=== PATIENT | male | born 1960 | race Caucasian/White ===

== ENCOUNTER → 2019-06-24 15:08 | Outpatient (CLI) | payer OTHER, SELFPAY ==
[2019-06-24 15:40] LABS: Add Manual Diff / Slide Review NO; Basophils Absolute Auto 100 /uL (0-100); Eosinophils Absolute Auto 200 /uL (0-450); Eosinophils Percent Auto 2.9 % (2-4); Hematocrit 45.5 % (41-53); Hemoglobin 15.4 g/dL (13.5-17.5); Lymphocytes Absolute Auto 1300 /uL (1100-4500); Lymphocytes Percent Auto 18.5 % (25-40); Mean Corpuscular HGB Conc 33.9 % (30-36); Mean Corpuscular Hemoglobin 32.8 PG (26-34); Mean Corpuscular Volume 96.7 fL (80-100); Monocytes Absolute Auto 700 /uL (0-900); Monocytes Percent Auto 9.6 % (3-14); Neutrophils Absolute Auto 4900 /uL (1500-7000); Platelet Count 146 X10^3/uL (150-400); Red Cell Distribution Width 15.9 % (11.6-14.8); White Blood Cell Count 7.2 X10^3/uL (4.5-11.0)
[2019-06-24 16:42] LABS: Alanine Aminotransferase 34 IU/L (21-72); Albumin 4.9 g/dL (3.5-5.0); Alkaline Phosphatase 66 U/L (38-126); Aspartate Aminotransferase 29 IU/L (17-59); BUN Creatinine Ratio 17.8 (6-22); Bilirubin Total 1.1 mg/dL (0.2-1.3); Blood Urea Nitrogen 16 mg/dL (9-20); Calcium 10.4 mg/dL (8.4-10.2); Carbon Dioxide 26 mmol/L (22-32); Chloride 99 mmol/L (98-107); Cholesterol 155 mg/dL (140-199); Estimated Glomerular Filt Rate > 60.0 mL/min (>60); Globulin 2.5 g/dL (1.7-4.1); Glucose 89 mg/dL (80-110); HDL Cholesterol 48 mg/dL (40-60); HEMOLYSIS < 15 (0-50); LDL Cholesterol Calculated 83 mg/dL (<100); Potassium 4.2 mmol/L (3.4-5.1); Sodium 138 mmol/L (137-145); Total Protein 7.4 g/dL (6.3-8.2); Triglycerides 122 mg/dL (35-150)
[2019-06-24 17:05] LABS: Thyroid Stimulating Hormone 2.12 uIU/mL (0.47-4.68)
[2019-06-24 17:41] LABS: Folate 13.1 ng/mL (2.76-20.0); Vitamin B12 423 pg/mL (239-931)
[2019-06-30 16:13] LABS: PSA Total 1.79 ng/mL (< 4.01)
== END ==
PROVIDERS: Visit Provider Family Medicine
DX: I25.119 Atherosclerotic heart disease of native coronary artery with unspecified angina pectoris (principal); Z12.5 Encounter for screening for malignant neoplasm of prostate
CPT/HCPCS: 36415; 80053; 80061; 82607; 82746; 84153; 84154; 84443; 85025

== ENCOUNTER → 2020-05-22 09:47 | Outpatient (CLI) | payer OTHER, SELFPAY ==
[2020-05-22 10:28] LABS: Hematocrit 44.3 % (41-53); Hemoglobin 14.9 g/dL (13.5-17.5); Mean Corpuscular HGB Conc 33.6 % (30-36); Mean Corpuscular Hemoglobin 32.9 PG (26-34); Mean Corpuscular Volume 97.9 fL (80-100); Platelet Count 135 X10^3/uL (150-400); Red Blood Cell Count 4.52 X10^6/uL (4.5-5.9); Red Cell Distribution Width 16.7 % (11.6-14.8); White Blood Cell Count 6.3 X10^3/uL (4.5-11.0)
[2020-05-22 10:51] LABS: HEMOLYSIS < 15 (0-50)
[2020-05-22 10:59] LABS: Alanine Aminotransferase 43 IU/L (<50); Albumin 4.4 g/dL (3.5-5.0); Albumin Globulin Ratio 1.5 (1.0-2.8); Alkaline Phosphatase 91 U/L (38-126); Aspartate Aminotransferase 30 IU/L (17-59); BUN Creatinine Ratio 22.8 (6-22); Bilirubin Total 0.9 mg/dL (0.2-1.3); Blood Urea Nitrogen 21 mg/dL (9-20); Calcium 9.6 mg/dL (8.4-10.2); Carbon Dioxide 26 mmol/L (22-32); Chloride 102 mmol/L (98-107); Cholesterol 218 mg/dL (140-199); Estimated Glomerular Filt Rate > 60.0 mL/min (>60); Glucose 123 mg/dL (80-110); HDL Cholesterol 43 mg/dL (40-60); LDL Cholesterol Calculated 147 mg/dL (<100); Potassium 4.7 mmol/L (3.4-5.1); Sodium 135 mmol/L (137-145); Total Protein 7.4 g/dL (6.3-8.2); Triglycerides 138 mg/dL (35-150)
[2020-05-24 12:39] LABS: Hemoglobin A1C% w Est Avg Glu 5.5 % (4.0-6.0)
== END ==
PROVIDERS: PCP Nurse Practitioner Family; Referring Provider Nurse Practitioner Family; Visit Provider Nurse Practitioner Family
DX: I10 Essential (primary) hypertension (principal); I25.10 Atherosclerotic heart disease of native coronary artery without angina pectoris
CPT/HCPCS: 36415; 80053; 80061; 83036; 84153; 85027

== ENCOUNTER → 2020-07-17 16:22 | Outpatient (CLI) | payer OTHER, SELFPAY ==
[2020-07-19 08:29] LABS: Fecal Immunochemical Test Negative (Negative)
== END ==
PROVIDERS: PCP Nurse Practitioner Family; Referring Provider Nurse Practitioner Family; Visit Provider Nurse Practitioner Family
DX: Z12.11 Encounter for screening for malignant neoplasm of colon (principal)
CPT/HCPCS: 82274

== ENCOUNTER → 2020-07-18 07:27 | Outpatient (CLI) | payer OTHER, SELFPAY ==
[2020-07-18 08:51] LABS: Add Manual Diff / Slide Review NO; Basophils Absolute Auto 100 /uL (0-100); Eosinophils Absolute Auto 200 /uL (0-450); Eosinophils Percent Auto 2.8 % (2-4); Hematocrit 46.4 % (41-53); Hemoglobin 15.4 g/dL (13.5-17.5); Lymphocytes Absolute Auto 1100 /uL (1100-4500); Lymphocytes Percent Auto 15.3 % (25-40); Mean Corpuscular HGB Conc 33.1 % (30-36); Mean Corpuscular Volume 99.6 fL (80-100); Monocytes Absolute Auto 700 /uL (0-900); Monocytes Percent Auto 10.3 % (3-14); Neutrophils Absolute Auto 5100 /uL (1500-7000); Neutrophils Percent Auto 70.6 % (50-75); Platelet Count 134 X10^3/uL (150-400); Red Blood Cell Count 4.66 X10^6/uL (4.5-5.9); Red Cell Distribution Width 16.4 % (11.6-14.8); White Blood Cell Count 7.2 X10^3/uL (4.5-11.0)
== END ==
PROVIDERS: PCP Nurse Practitioner Family; Referring Provider Nurse Practitioner Family; Visit Provider Nurse Practitioner Family
DX: D69.6 Thrombocytopenia, unspecified (principal)
CPT/HCPCS: 36415; 85025

== ENCOUNTER 2020-09-17 13:52 | Emergency (ER) | payer OTHER, SELFPAY ==
[2020-09-17 13:55] VITALS: BP 157/75; PULSE 52; RESP 16; TEMP 36.4; O2SAT 98
[2020-09-17] MEDS: TETRACAINE 0.5% OPHTH DROPS 4 ML 1 DROPS EYE-RIGHT (16:32)
[2020-09-17] MEDS: FLUORESCEIN 1 MG STRIP EYE-RIGHT (16:32)
--- NOTE | 2020-09-17 16:57 | ED.EYEPROB ---
HPI - Eye Problem General Chief complaint: Eye Problems Stated complaint: something in right eye x 3 days Time Seen by Provider: 09/17/20 16:08 Source: patient Mode of arrival: Ambulatory Limitations: no limitations History of Present Illness HPI Narrative: This is a 60-year-old male who states that he had what he believes a piece of metal fly into his right eye 3 days prior. He states he was grinding metal. He is wearing glasses but not safety goggles. He states he developed what appears to be a subconjunctival hemorrhage shortly after. Patient states he has not appreciated any vision changes until he was and doing his eye exam. He noticed a decrease in his left although it is his right eye that was involved. He states while the nurse was flushing his eye here they thought maybe something had come out. Patient has had some mild discomfort but not severe pain he has not had any discharge. He has noticed a little bit of redness on the left side as well. Patient uses reader is but no regular glasses and does not wear contacts. He does not have an grinder operator external tool or intervention teacher that he follows with regularly. He denies any other, no nausea or vomiting. No chest pain or shortness of breath. No fevers. Related Data Previous Rx's Medication Instructions Recorded fluoxetine 20 mg capsule 20 mg PO DAILY #90 cap 08/17/20 metoprolol succinate 50 mg 50 mg PO DAILY #90 tab 08/17/20 tablet,extended release 24 hr rosuvastatin 20 mg tablet 20 mg PO DAILY #90 tab 08/17/20 Allergies Allergy/AdvReac Type Severity Reaction Status Date / Time No Known Drug Allergies Allergy Unverified 04/05/20 13:22 Review of Systems Review of Systems ROS Unobtainable: All systems reviewed & are unremarkable except as noted in HPI and below Patient History Medical History Anxiety Blood in semen (2018) Colon polyps Decreased platelet count Mixed hyperlipidemia Right knee pain (12/2019) Sleep apnea (~2018) Tinnitus Wears glasses Surgical History Anesthesia History of four vessel coronary artery bypass graft (2017) S/P CABG x 4 (~09/2016) Family History (Updated 04/04/20 @ 20:28 by Shelley Muir) Mother Cancer Hypertension Brother History of heart disease Hyperlipidemia Hypertension Grandmother History of heart disease Grandfather Cancer Social History Smoking Status: Former smoker Tobacco: How many years used: 20 second hand exposure: No alcohol intake: current (3x/week) substance use type: does not use Smoking Status: Former smoker Exam Narrative Exam Narrative: GEN: well nourished, well appearing male, alert and oriented x 3, patient appears to be in mild distress. HEENT: Atraumatic, pupils are equal round reactive to light, extraocular movements are intact, nares are clear, TMs are clear with no fluid, there is no conjunctival pallor. Throat is clear without any exudates, erythema, tonsillar enlargement or uvular deviation Visual acuity: see chart. General: no globe trauma Eyelids: normal inspection, eyelids everted for exam on both, no FB. Conjunctiva/Sclera: normal inspection Corneas: normal inspection, examined with fluroscein bilaterally, patient has uptake in sort of a linear fashion horizontally from the 2 o'clock position on the outer sclerae across the cornea on the right, it does not appear to be a laceration but more likely an abrasion, patient also has some spotty uptake in the left lower sclera on the left eye. EOM: intact, no palsy/entrapment Pupils: PERRL, normal accomadation, pupil normal Anterior Chambers: normal inspection, no hypema Posterior: normal fundoscopic b/l, difficult exam. HEART: Regular rate and rhythm without murmur, clicks, rubs. LUNGS:Lungs clear to auscultation, no wheezes, rales, crackles, chest moves symmetrically MSCL: Non-tender, full range of motion, normal gait NEURO:CN 2-12 intact, sensation normal SKIN: Rash, erythema or ecchymosis. Initial Vital Signs Initial Vital Signs: Vital Signs Temperature 97.5 F L 09/17/20 13:55 Pulse Rate 52 L 09/17/20 13:55 Respiratory Rate 16 09/17/20 13:55 Blood Pressure 157/75 H 09/17/20 13:55 Pulse Oximetry 98 09/17/20 13:55 Course Orders Ordered: Discontinued Medications Fluorescein Sodium (Fluorescein 1 Mg Strip) 1 mg EYE-RIGHT NOW ONE Stop: 09/17/20 16:09 Last Admin: 09/17/20 16:32 Dose: 1 mg Documented by: JESUS MANUEL Ofloxacin (Ofloxacin 0.3% Ophth 5 Ml) 2 drops EYE-BOTH NOW ONE Stop: 09/17/20 17:00 Last Admin: 09/17/20 17:06 Dose: 2 drops Documented by: JESUS MANUEL Tetracaine HCl (Tetracaine 0.5% Ophth Drops 4 Ml) 1 drops EYE-RIGHT Q5MIN PRN PRN Reason: Pain, Mild (1-3) Last Admin: 09/17/20 16:32 Dose: 1 drops Documented by: JESUS MANUEL Vital Signs Vital signs: Vital Signs - 8 hr 09/17/20 13:55 09/17/20 17:16 Temperature 97.5 F L 98.2 F Pulse Rate 52 L 68 Respiratory Rate 16 14 Blood Pressure 157/75 H 136/82 Pulse Oximetry 98 100 MDM - Eye Problem MDM Narrative Medical decision making narrative: Patient does have a little bit of uptake in the right eye there is also some spotting of uptake on the left lower eye although not over the cornea on that side. Patient was started on antibiotic drops. His vision does not have significant changes. He does not have Ophthalmology follow-up so was referred to follow up with our grinder operator external tool here tomorrow. [place] on [place] so he states he may follow-up on Friday. Discharge Plan Departure Patient Disposition: Home Clinical Impression: Abrasion, corneal, Subconjunctival hemorrhage Instructions: DI for Corneal Abrasion Activity Restrictions/Additional Instructions: Follow-up with ophthalmology for recheck on Friday or Friday call Friday for an appointment. Referral is included below. Let the office know that you referred from the emergency department for evaluation. Use antibiotic eyedrops to bilateral eyes, 4 times daily while awake. Return to the emergency department for sudden loss or decrease in vision, severe eye pain, purulence discharge, severe headaches vomiting, is loss of vision, new weakness numbness difficulty with speech or other new or concerning symptoms. Prescriptions: No Action fluoxetine [Prozac] 20 mg capsule 20 mg PO DAILY Qty: 90 RF: 1 metoprolol succinate 50 mg tablet extended release 24 hr 50 mg PO DAILY Qty: 90 RF: 1 rosuvastatin 20 mg tablet 20 mg PO DAILY Qty: 90 RF: 1 Referrals: Jules Oneill ARNP [Primary Care Provider] - John Avila MD [Physician] -
[2020-09-17] MEDS: OFLOXACIN 0.3% OPHTH 5 ML 2 DROPS EYE-BOTH (17:06)
[2020-09-17 17:16] VITALS: BP 136/82; PULSE 68; RESP 14; TEMP 36.8; O2SAT 100
== END 2020-09-17 17:16 | disposition home or self-care (01) ==
PROVIDERS: Emergency Provider Emergency Medicine; PCP Nurse Practitioner Family
DX: S05.01XA Injury of conjunctiva and corneal abrasion without foreign body, right eye, initial encounter (principal); H11.30 Conjunctival hemorrhage, unspecified eye; W45.8XXA Other foreign body or object entering through skin, initial encounter
CPT/HCPCS: 99281; 99282

== ENCOUNTER → 2021-06-11 10:37 | Outpatient (CLI) | payer OTHER, SELFPAY ==
[2021-06-11 11:56] LABS: Hematocrit 45.2 % (41-53); Hemoglobin 14.9 g/dL (13.5-17.5); Mean Corpuscular Volume 96.8 fL (80-100); Platelet Count 139 X10^3/uL (150-400); Red Blood Cell Count 4.67 X10^6/uL (4.5-5.9); Red Cell Distribution Width 16.5 % (11.6-14.8); White Blood Cell Count 6.5 X10^3/uL (4.5-11.0)
[2021-06-11 12:14] LABS: Alanine Aminotransferase 24 IU/L (<50); Albumin 4.6 g/dL (3.5-5.0); Albumin Globulin Ratio 1.8 (1.0-2.8); Alkaline Phosphatase 68 U/L (38-126); Aspartate Aminotransferase 25 IU/L (17-59); BUN Creatinine Ratio 16.7 (6-22); Blood Urea Nitrogen 15 mg/dL (9-20); Calcium 10.4 mg/dL (8.4-10.2); Carbon Dioxide 29 mmol/L (22-32); Chloride 99 mmol/L (98-107); Cholesterol 157 mg/dL (140-199); Estimated Glomerular Filt Rate > 60.0 mL/min (>60); Globulin 2.6 g/dL (1.7-4.1); Glucose 106 mg/dL (80-110); HDL Cholesterol 54 mg/dL (40-60); HEMOLYSIS < 15 (0-50); LDL Cholesterol Calculated 88 mg/dL (<100); Potassium 4.6 mmol/L (3.4-5.1); Sodium 136 mmol/L (137-145); Total Protein 7.2 g/dL (6.3-8.2); Triglycerides 76 mg/dL (35-150)
== END ==
PROVIDERS: PCP Nurse Practitioner Family; Referring Provider Nurse Practitioner Family; Visit Provider Nurse Practitioner Family
DX: Z00.00 Encounter for general adult medical examination without abnormal findings (principal); F41.9 Anxiety disorder, unspecified; I10 Essential (primary) hypertension; I25.10 Atherosclerotic heart disease of native coronary artery without angina pectoris
CPT/HCPCS: 36415; 80053; 80061; 84443; 85027

== ENCOUNTER → 2021-07-03 10:05 | Outpatient (CLI) | payer OTHER, SELFPAY | PROVIDERS: PCP Nurse Practitioner Family; Referring Provider Nurse Practitioner Family; Visit Provider Nurse Practitioner Family | DX: R07.9 Chest pain, unspecified (principal) | CPT/HCPCS: 93005 ==

== ENCOUNTER → 2022-12-10 10:51 | Outpatient (CLI) | payer OTHER, SELFPAY ==
[2022-12-10 19:51] LABS: Add Manual Diff / Slide Review NO; Basophils Absolute Auto 100 /uL (0-100); Basophils Percent Auto 0.8 % (0-2); Eosinophils Absolute Auto 300 /uL (0-450); Eosinophils Percent Auto 3.6 % (2-4); Hematocrit 42.2 % (41-53); Hemoglobin 14.2 g/dL (13.5-17.5); Lymphocytes Absolute Auto 1200 /uL (1100-4500); Lymphocytes Percent Auto 15.2 % (25-40); Mean Corpuscular HGB Conc 33.7 % (30-36); Mean Corpuscular Hemoglobin 33.5 PG (26-34); Mean Corpuscular Volume 99.5 fL (80-100); Monocytes Absolute Auto 800 /uL (0-900); Monocytes Percent Auto 10.7 % (3-14); Neutrophils Absolute Auto 5400 /uL (1500-7000); Neutrophils Percent Auto 69.7 % (50-75); Platelet Count 141 X10^3/uL (150-400); Red Blood Cell Count 4.24 X10^6/uL (4.5-5.9); Red Cell Distribution Width 16.2 % (11.6-14.8); White Blood Cell Count 7.8 X10^3/uL (4.5-11.0)
[2022-12-10 20:02] LABS: Alanine Aminotransferase 28 IU/L (<50); Albumin 4.3 g/dL (3.5-5.0); Albumin Globulin Ratio 1.5 (1.0-2.8); Alkaline Phosphatase 54 U/L (38-126); Aspartate Aminotransferase 29 IU/L (17-59); BUN Creatinine Ratio 14.4 (6-22); Blood Urea Nitrogen 14 mg/dL (9-20); Calcium 9.3 mg/dL (8.4-10.2); Carbon Dioxide 30 mmol/L (22-32); Chloride 98 mmol/L (98-107); Cholesterol 139 mg/dL (140-199); Estimated Glomerular Filt Rate > 60 mL/min (>60); Globulin 2.8 g/dL (1.7-4.1); Glucose 103 mg/dL (80-110); HDL Cholesterol 50 mg/dL (40-60); HEMOLYSIS < 15 (0-50); LDL Cholesterol Calculated 70 mg/dL (<100); Potassium 4.2 mmol/L (3.4-5.1); Sodium 134 mmol/L (137-145); Total Protein 7.1 g/dL (6.3-8.2); Triglycerides 95 mg/dL (35-150)
[2022-12-10 20:29] LABS: TSH w/ Reflex to FT4 2.02 uIU/mL (0.47-4.68)
[2022-12-10 20:32] LABS: Prostate Specific Antigen Scrn 2.05 ng/mL (0.1-4.0)
== END ==
PROVIDERS: PCP Family Medicine; Visit Provider Physician Assistant
DX: D69.6 Thrombocytopenia, unspecified (principal); E78.2 Mixed hyperlipidemia; F41.9 Anxiety disorder, unspecified; I10 Essential (primary) hypertension; I25.10 Atherosclerotic heart disease of native coronary artery without angina pectoris; Z12.5 Encounter for screening for malignant neoplasm of prostate
CPT/HCPCS: 80053; 80061; 84443; 85025; G0103

== ENCOUNTER → 2023-09-04 08:31 | Outpatient (CLI) | payer OTHER, SELFPAY ==
--- NOTE | 2023-09-04 | DI.US.S_ITS ---
PROCEDURE: US CAROTID DOPPLER BI INDICATIONS: HEART DISEASE TECHNIQUE: Color and pulse Doppler interrogation was performed of both carotid systems, with image documentation and velocity measurements. COMPARISON: None. FINDINGS: Stenosis calculations are based on SRU (Society of Radiologists in Ultrasound) criteria. Right side: Common carotid artery peak systolic velocity: 76 cm/sec. Internal carotid artery peak systolic velocity: 74 cm/sec. Internal carotid artery end diastolic velocity: 22 cm/sec. External carotid artery peak systolic velocity: 57 cm/sec. ICA/CCA peak systolic ratio: 1.1. Carvajal scale imaging description: Mild plaque Percent internal carotid artery stenosis: Less than 50 %. Vertebral artery: Flow direction is antegrade. Left side: Common carotid artery peak systolic velocity: 84 cm/sec. Internal carotid artery peak systolic velocity: 224 cm/sec. Internal carotid artery end diastolic velocity: 60 cm/sec. External carotid artery peak systolic velocity: 88 cm/sec. ICA/CCA peak systolic ratio: 2.7. Carvajal scale imaging description: Moderate calcified atherosclerotic plaque Percent internal carotid artery stenosis: 50-69 %. Vertebral artery: Flow direction is antegrade. IMPRESSION: 1. Left internal carotid artery 50-69 % stenosis. 2. Right internal carotid artery less than 50 % stenosis. Approved by: Syed Allison M.D. on 09/04/2023 at 16:43
--- NOTE | 2023-09-04 | DI.ECHO.S_ITS ---
[facility] +---------+ [facility] +---------+ : : [address] : : : : [id number] : : : : Phone: [phone]+ Echocardiogram Report + + :Name: LIGIA FUENTES Study Date: 09/04/2023 Height: 70 in : :[facility] ReadingLocation: Weight: 235 lb : : Gender: Male BSA: 2.2 m2 : :: 1960 Age: 63 yrs BP: 138/88 mmHg: :Reason For Study: ATHEROSCLEROTIC HEART DISEASE : :Ordering Physician: DAPHNIE, : :CALISTA Powell Performed By: Pia Stover : :Referring: CALISTA SPEAR : + + Interpretation Summary The patient was in sinus bradycardia with heart rates between 44-52 bpm during the exam. There is mild concentric left ventricular hypertrophy. The ejection fraction is estimated to be 50-55%. Diastolic parameters suggest probable normal left ventricular diastolic function and normal filling pressures. The right ventricle is borderline dilated. Right ventricular systolic function is mildly reduced. No significant valvular abnormalities. Pulmonary artery pressures cannot be estimated because of the lack of a measurable TR jet velocity but the IVC suggests a CVP of around 8 mmHg. Procedure: A two-dimensional transthoracic echocardiogram with color flow and Doppler was performed. The study quality was technically adequate. There is no prior echocardiogram noted for this patient. The patient was in sinus bradycardia with heart rates between 44-52 bpm during the exam. The patient had occasional PVCs during the exam. Left Ventricle: The left ventricle is normal in size. There is mild concentric left ventricular hypertrophy. The ejection fraction is estimated to be 50-55%. Diastolic parameters suggest probable normal left ventricular diastolic function and normal filling pressures. Right Ventricle: The right ventricle is borderline dilated. Right ventricular systolic function is mildly reduced. Atria: The left atrial size is normal. Right atrial size is normal. There is no Doppler evidence for an interatrial shunt. Mitral Valve: The mitral valve is normal in structure and function. There is no mitral regurgitation noted. Aortic Valve: The aortic valve is trileaflet. The aortic valve opens well. There is no aortic valve stenosis. No aortic regurgitation is present. Tricuspid Valve: The tricuspid valve is normal in structure and function. No tricuspid regurgitation. Pulmonary artery pressures cannot be estimated because of the lack of a measurable TR jet velocity but the IVC suggests a CVP of around 8 mmHg. Pulmonic Valve: The pulmonic valve is not well seen, but is grossly normal. There is no pulmonic valvular regurgitation. Great Vessels: The aortic root is normal size. The dimensions of the ascending aorta are normal. The IVC is dilated (diameter is greater than 2.1 cm) yet it collapses greater than 50% with a sniff. This suggests a right atrial pressure of 8 mm Hg. Pericardium/ Pleura There is no pericardial effusion. There is no pleural effusion. MMode/2D Measurements & Calculations LVIDd: 5.0 cm LVOT diam: 2.4 cm LVIDs: 3.6 cm Ao root diam: 3.5 cm FS: 27.1 % asc Aorta Diam: 3.5 cm EPSS: 1.1 cm Ao Arch Diam (Prox Trans): 4.2 cm IVSd: 1.3 cm LVPWd: 1.0 cm LV scales. diameter/BSA (cm/m^2): 2.2 LV sys. diameter/BSA (cm/m^2): 1.6 LA A2 area: 17.6 cm2 RA long axis: 5.9 cm LA A4 area: 21.6 cm2 RA area: 24.0 cm2 LA length (vol): 6.0 cm RA vol: 82.3 ml LA vol: 53.7 ml RA : 36.8 ml/m2 LA vol index: 24.0 ml/m2 IVC diam: 2.1 cm RVD1 (basal): 4.2 cm RVD2 (mid): 4.1 cm TAPSE: 1.5 cm Doppler Measurements & Calculations Ao V2 max: 126.6 cm/sec LVOT Max Joce: 76.6 cm/sec Ao V2 mean: 87.6 cm/sec LV V1 max P.3 mmHg Ao max P.4 mmHg LV V1 VTI: 18.3 cm Ao mean P.4 mmHg ELVIRA(I,D): 2.7 cm2 Ao V2 VTI: 30.7 cm ELVIRA(V,D): 2.7 cm2 sev ratio: 0.60 ELVIRA indexed to BSA (cm^2/m^2): 1.2 MV E max joce: 81.3 cm/sec PA V2 max: 76.7 cm/sec MV A max joce: 76.2 cm/sec PA V2 mean: 52.9 cm/sec MV E/A: 1.1 PA mean P.3 mmHg Med Peak E' Joce: 5.3 cm/sec PA pr(Accel): 36.2 mmHg E/E' med: 15.2 Lat Peak E' Joce: 9.9 cm/sec E/E' lat: 8.2 E/e' average: 11.7 MV dec time: 0.20 sec SV(LVOT): 82.0 ml Reading Physician:03:17 PM
--- NOTE | 2023-09-04 21:32 | DI.NM.S_ITS ---
DATE OF SERVICE: 09/04/2023 PROCEDURE: Exercise perfusion study. INDICATIONS: Known history of bypass surgery with four-vessel bypass surgery in September 2017, hypertension, hyperlipidemia with short shortness of breath. Exercise perfusion stress test is being done for CAD risk stratification. RADIOPHARMACEUTICAL: 25.6 mCi technetium-99m Myoview IV was injected at stress and 12.7 mCi technetium-99m Myoview IV was injected at rest. CARDIAC STRESS: Patient underwent exercise perfusion study under the supervision of an attending staff. He walked on Jak protocol for 8 minutes and 43 seconds, achieved maximum heart rate of 132, which was 85% of target heart rate. Resting blood pressure 120/80 and peak blood pressure 178/80. Baseline rhythm was sinus with T-wave inversion in anterolateral leads with some ST flattening. During exercise, anterolateral T-wave inversion improved; however, recurred in recovery. During exercise, patient has frequent PVCs, mostly isolated events with occasional ventricular couplets without any ventricular tachycardia. PVCs persisted in early part of recovery. No chest pain. Patient felt fatigued. Achieved 10.1 METS of workload. CHETAN is 0.7%. RAW DATA: There is increased subdiaphragmatic activity. Diaphragmatic shadow seen. The patient's weight is 230 pounds. The stress LV ejection fraction is 66% and resting LV ejection fraction is 54% without any significant wall motion abnormalities. Resting end-diastolic volume 162 mL. TID ratio 0.84, which is within normal limits. Lung/heart ratio 0.39, which is within normal limits. MYOCARDIAL PERFUSION SCAN: Stress supine, resting supine and stress prone images were compared to each other. Stress supine and resting supine images revealed small size, mild to moderately decreased perfusion of basal inferior wall as well as inferior apex which significantly improved during stress prone images, suggestive of diaphragmatic tissue attenuation artifact. Summed stress score and summed rest score is zero. CONCLUSION: This is a normal myocardial perfusion study with evidence of diaphragmatic tissue attenuation artifact, which improved during stress prone images. Summed stress score and summed rest score is zero. Patient walked on Jak protocol for 8 minutes and 43 seconds. Normal hemodynamic response. No ischemic anginal symptoms. Baseline EKG abnormalities as stated above. During stress, frequent PVCs, mostly isolated events with some ventricular couplets without any ventricular tachycardia. Preserved left ventricular function. Overall, low-risk exercise perfusion study. Correlate clinically. Rob GarciaN: [id number] CLASSIFYING MACHINE OPERATOR/freya/ec doc#: [id number]/job#: [id number] dd: 09/04/2023 16:55:00 dt: 09/04/2023 21:06:00 DICTATING MD/COPIES TO: Rosa Lim MD COPIES MNE: JEFF;
== END ==
LOC: ECHO 08:32
PROVIDERS: PCP Family Medicine; Referring Provider Internal Medicine Cardiovascular Disease; Visit Provider Internal Medicine Cardiovascular Disease
DX: I65.23 Occlusion and stenosis of bilateral carotid arteries (principal); R06.09 Other forms of dyspnea; I25.10 Atherosclerotic heart disease of native coronary artery without angina pectoris; I10 Essential (primary) hypertension; E78.5 Hyperlipidemia, unspecified; R06.02 Shortness of breath; Z95.1 Presence of aortocoronary bypass graft
CPT/HCPCS: 78452; 93017; 93306; 93880; A9502

== ENCOUNTER → 2023-12-19 10:29 | Outpatient (CLI) | payer OTHER, SELFPAY ==
[2023-12-19 19:58] LABS: Alanine Aminotransferase 36 IU/L (<50); Albumin 4.4 g/dL (3.5-5.0); Albumin Globulin Ratio 1.6 (1.0-2.8); Alkaline Phosphatase 66 U/L (38-126); Aspartate Aminotransferase 32 IU/L (17-59); BUN Creatinine Ratio 17.5 (6-22); Bilirubin Total 1.2 mg/dL (0.2-1.3); Blood Urea Nitrogen 17 mg/dL (9-20); Calcium 9.7 mg/dL (8.4-10.2); Carbon Dioxide 24 mmol/L (22-32); Chloride 99 mmol/L (98-107); Cholesterol 182 mg/dL (140-199); Estimated Glomerular Filt Rate > 60 mL/min (>60); Globulin 2.8 g/dL (1.7-4.1); Glucose 110 mg/dL (80-110); HDL Cholesterol 46 mg/dL (40-60); HEMOLYSIS < 15 (0-50); LDL Cholesterol Calculated 110 mg/dL (<100); Potassium 4.4 mmol/L (3.4-5.1); Sodium 133 mmol/L (137-145); Total Protein 7.2 g/dL (6.3-8.2); Triglycerides 130 mg/dL (35-150)
[2023-12-19 20:09] LABS: Add Manual Diff / Slide Review NO; Basophils Absolute Auto 200 /uL (0-100); Basophils Percent Auto 2.3 % (0-2); Eosinophils Absolute Auto 200 /uL (0-450); Eosinophils Percent Auto 2.3 % (2-4); Hematocrit 43.8 % (41-53); Hemoglobin 14.9 g/dL (13.5-17.5); Lymphocytes Absolute Auto 1300 /uL (1100-4500); Lymphocytes Percent Auto 17.5 % (25-40); Mean Corpuscular HGB Conc 34.1 % (30-36); Mean Corpuscular Volume 99.7 fL (80-100); Monocytes Absolute Auto 700 /uL (0-900); Monocytes Percent Auto 9.4 % (3-14); Neutrophils Absolute Auto 5100 /uL (1500-7000); Neutrophils Percent Auto 68.5 % (50-75); Platelet Count 149 X10^3/uL (150-400); Red Blood Cell Count 4.39 X10^6/uL (4.5-5.9); Red Cell Distribution Width 16.1 % (11.6-14.8); White Blood Cell Count 7.5 X10^3/uL (4.5-11.0)
[2023-12-19 20:21] LABS: Prostate Specific Antigen Scrn 2.55 ng/mL (0.1-4.0)
[2023-12-22 07:52] LABS: HIV 1 & 2 Ab/Ag 4th Gen Combo NEGATIVE (NEGATIVE); Hep C Virus Ab w/Reflex Quant NEGATIVE s/c (NEGATIVE)
== END ==
PROVIDERS: PCP Family Medicine; Visit Provider Physician Assistant
DX: Z11.59 Encounter for screening for other viral diseases (principal); Z11.4 Encounter for screening for human immunodeficiency virus [HIV]; Z12.5 Encounter for screening for malignant neoplasm of prostate; E78.2 Mixed hyperlipidemia; D69.6 Thrombocytopenia, unspecified; I10 Essential (primary) hypertension; Z79.899 Other long term (current) drug therapy
CPT/HCPCS: 80053; 80061; 85025; 86803; 87389; G0103

== ENCOUNTER → 2023-12-31 08:55 | Outpatient (CLI) | payer OTHER, SELFPAY ==
[2024-01-02 15:06] LABS: Fecal Immunochemical Test Negative (Negative)
== END ==
PROVIDERS: PCP Family Medicine; Visit Provider Physician Assistant
DX: Z12.11 Encounter for screening for malignant neoplasm of colon (principal)
CPT/HCPCS: 82274